=== PATIENT | female | born 1955 | race Caucasian/White ===

== ENCOUNTER 2016-08-26 09:59 | Emergency (ER) | payer MEDICARE, BC | END 2016-08-26 11:17 | disposition home or self-care (01) | LOC: ER1 09:59 | DX: L50.0 Allergic urticaria (principal); T36.0X5A Adverse effect of penicillins, initial encounter; Z87.891 Personal history of nicotine dependence; Z88.0 Allergy status to penicillin | CPT/HCPCS: 96372; 99282; J1100 ==